=== PATIENT | male | born 1995 | race African-American/Black ===

== ENCOUNTER 2016-09-21 16:31 | Emergency (ER) | payer BC ==
[~2016-09-21] VITALS: Ht 175.3 cm; Wt 75.0 kg
[2016-09-21 16:37] VITALS: BP 120/60; PULSE 70; RESP 15; TEMP 98; O2SAT 100
--- NOTE | 2016-09-21 17:04 | PD ---
HPI . right knee pain Chief Complaint: Injury Time Seen by Provider: 17:01 Travel History International Travel<30 days: No Contact w/Intl Traveler<30days: No Traveled to known affect area: No History of Present Illness HPI 21-year-old male with no past medical history here with complaints of right knee pain. Patient was playing basketball and somehow fell and landed on the right medial aspect of his knee. He says initially he had some difficulty walking and thought he had a fracture so he decided to come to the emergency department. Here while sitting in the bed he realized that he is able to move his joint without any issues. He denies any pain. He has no complaints. He initially felt he just wanted to get up and leave, but decided to wait around for me to see him. History Past Medical Histgory Medical History: Denies Significant Hx Tetanus Vaccination: < 5 Years Past Surgical History Surgical History: No Previous Surgery Social History Alcohol Use: No Tobacco Use: No Allergies-Medications (Allergen,Severity, Reaction): Coded Allergies: No Known Allergies (Unverified , 09/21/16) Reported Meds & Prescriptions Reported Meds & Active Scripts Active No Active Prescriptions or Reported Medications Review of Systems General / Constitutional: No: Fever Eyes: No: Visual changes HENT: No: Headaches Cardiovascular: No: Chest Pain or Discomfort Respiratory: No: Shortness of Breath Gastrointestinal: No: Abdominal Pain Genitourinary: No: Dysuria Musculoskeletal: No: Pain Skin: No Rash Neurologic: No: Weakness Psychiatric: No: Depression Endocrine: No: Polydipsia Hematologic/Lymphatic: No: Easy Bruising Physical Exam Narrative GENERAL: AAO x 3, no acute distress, Well-nourished, well-developed patient. SKIN: Warm and dry. No visible rashes or bruising. HEAD: Normocephalic and atraumatic. EYES: No scleral icterus. No injection or drainage. EOM intact, PERRLA ENT: No nasal drainage noted. Mucous membranes pink. Airway patent. NECK: Supple, trachea midline. No JVD. CARDIOVASCULAR: Regular rate and rhythm without murmurs, gallops, or rubs. RESPIRATORY: Breath sounds equal bilaterally. No accessory muscle use. No rhonchi or rales. GASTROINTESTINAL: Abdomen soft, non-tender, nondistended. EXTREMITIES: No cyanosis or edema. FULL ROM in Right knee/ NO deformity/no edema / no tenderness/ BACK: Nontender without obvious deformity. No CVA tenderness. PSYCH: AAO x 3, normal affect. Data Data Last Documented VS Vital Signs Date Time Temp Pulse Resp B/P Pulse Ox O2 Delivery O2 Flow Rate FiO2 09/21/16 16:51 Room Air 09/21/16 16:37 98.0 70 15 120/60 100 MDM Medical Screen Exam Complete: Yes Emergency Medical Condition: No Differential Diagnosis knee sprain, less likely dislocation, less likely fracture Narrative Course 21-year-old male with no past medical history here with complaints of right knee pain. Patient was playing basketball and somehow fell and landed on the right medial aspect of his knee. He says initially he had some difficulty walking and thought he had a fracture so he decided to come to the emergency department. Here while sitting in the bed he realized that he is able to move his joint without any issues. He denies any pain. He has no complaints. He initially felt he just wanted to get up and leave, but decided to wait around for me to see him. A medical screening exam was performed: At the time of evaluation the presenting medical condition was determined not to be of an emergent nature. The patient was given the option of receiving additional care, but declined. Patient was given options for additional community resources from which to obtain care. The Patient Has Been advised to seek medical attention for their presenting complaint. The patient has been advised to return to the ER at any time if an emergent condition develops. Primary Impression: Encounter for medical screening examination Scripts No Active Prescriptions or Reported Meds Condition: Stable Yanely Harrison Sep 21, 2016 17:04
== END 2016-09-21 17:21 | disposition left against medical advice (07) ==
LOC: NEPB 16:31
DX: M25.561 Pain in right knee (principal)
CPT/HCPCS: 99281; 99283

== ENCOUNTER 2017-03-10 22:03 | Emergency (ER) | payer BC ==
[~2017-03-10] VITALS: Ht 167.6 cm; Wt 72.5 kg
[2017-03-10 22:05] VITALS: BP 124/66; PULSE 67; RESP 16; TEMP 99.8; O2SAT 98
== END 2017-03-10 23:10 | disposition left against medical advice (07) ==
LOC: NED 22:03
DX: J02.9 Acute pharyngitis, unspecified (principal); Z53.21 Procedure and treatment not carried out due to patient leaving prior to being seen by health care provider
CPT/HCPCS: 99281

== ENCOUNTER 2017-03-12 16:30 | Emergency (ER) | payer BC ==
[~2017-03-12] VITALS: Ht 167.6 cm; Wt 74.0 kg
[2017-03-12 16:32] VITALS: BP 124/74; PULSE 87; RESP 18; TEMP 98.1; O2SAT 97
--- NOTE | 2017-03-12 17:07 | PD ---
HPI Chief Complaint: Cold / Flu Symptoms Time Seen by Provider: 17:07 Travel History International Travel<30 days: No Contact w/Intl Traveler<30days: No Traveled to known affect area: No History of Present Illness HPI 21-year-old male presents emergency Department with complaint of cough, chest tightness, shortness of breath 1 week. Cough is dry and nonproductive and his main symptom. Denies history of asthma. Reports tobacco use. Reports wheezing. Denies fever, vomiting. Denies ear pain. Reports throat irritation but denies sore throat. Says his chest hurts when he coughs and takes deep breaths, otherwise denies chest pain. Has tried [id number] medications for symptom management. Symptoms are mild in severity. Has no other medical complaints. No known allergies. No other modifying factors or associated signs and symptoms. [facility] Social History Alcohol Use: No Tobacco Use: Yes Substance Use: Yes (MARIJUANA 09/19/16) Allergies-Medications (Allergen,Severity, Reaction): Coded Allergies: No Known Allergies (Unverified , 03/12/17) Reported Meds & Prescriptions Reported Meds & Active Scripts Active Tessalon Perles (Benzonatate) 100 Mg Cap 100 Mg PO TID PRN Proair Hfa 8.5 GM Inh (Albuterol Sulfate) 90 Mcg/Act Aer 2 Puff INH Q4-6H PRN 108 mcg/actuation Deltasone (Prednisone) 20 Mg Tab 40 Mg PO DAILY 4 Days Review of Systems Except as stated in HPI: all other systems reviewed are Neg Physical Exam Narrative GENERAL: Well-nourished, well-developed black male patient, in no acute distress ; afebrile, nontoxic-appearing SKIN: Warm and dry. HEAD: Atraumatic. Normocephalic. EYES: Pupils equal and round. No scleral icterus. No injection or drainage. ENT: Mucosa pink and moist. No erythema or exudates. No uvular edema. No uvular , palatal, or tonsillar deviation. Airway patent. Nares without nasal blood, purulent drainage or septal hematoma. EARS: Bilateral pinnae and external canals appear within normal limits. Bilateral tympanic membranes without erythema, dullness or perforation. NECK: Trachea midline. No lymphadenopathy. CARDIOVASCULAR: Regular rate and rhythm. No murmur appreciated. RESPIRATORY: No accessory muscle use. Lungs with Wheezing throughout to auscultation. Breath sounds equal bilaterally. No retractions or tachypnea. No Audible wheezing noted. GASTROINTESTINAL: Flat. MUSCULOSKELETAL: No obvious deformities. No clubbing. No cyanosis. No edema. NEUROLOGICAL: Awake and alert. Oriented 3. No obvious cranial nerve deficits. Motor grossly within normal limits. Normal speech. Moves all extremities. 5/5 strength to all extremities. PSYCHIATRIC: Appropriate mood and affect; insight and judgment normal. Data Data Last Documented VS Vital Signs Date Time Temp Pulse Resp B/P (MAP) Pulse Ox O2 Delivery O2 Flow Rate FiO2 03/12/17 16:32 98.1 87 18 124/74 (91) 97 Room Air Orders Orders Chest, Pa & Lat (03/12/17 17:06) Prednisone (Deltasone) (03/12/17 17:15) Albuterol Neb (Albuterol Neb) (03/12/17 17:15) MDM Medical Decision Making Medical Screen Exam Complete: Yes Emergency Medical Condition: Yes Medical Record Reviewed: Yes Differential Diagnosis Viral illness, bronchitis, pneumonia, upper respiratory infection Narrative Course 21-year-old male physical examination consistent with acute bronchitis. Patient is afebrile and nontoxic-appearing. Lungs are with diffuse wheezing throughout. Patient is in no acute distress and oxygen is 97% on room air. 1731: Chest x-ray with no acute findings. Patient reports improvement in symptoms after breathing treatment. Denies chest tightness or shortness of breath. Lungs are clear and equal throughout. Pro Air inhaler, Deltasone, Tessalon Perles prescribed for home. Instructed patient to follow up with primary care provider. Patient verbalizes understanding and agreement with treatment plan. Patient is medically cleared and stable for discharge. Discussed reasons to return to the emergency department. Patient agrees with treatment plan. The patients vital signs are stable and the patient is stable for outpatient follow-up and treatment. Patient discharged home, stable and in no acute distress. Diagnosis Primary Impression: Acute bronchitis Qualified Codes: J20.9 - Acute bronchitis, unspecified Referrals: [facility] Primary Care Physician Patient Instructions: Acute Bronchitis (ED), General Instructions Departure Forms: Tests/Procedures, Work Release Enter return to work date: Mar 14, 2017 Additional Instructions: Use Albuterol inhaler as prescribed Take oral steroids as prescribed and complete full course Use Tessalon Perles as prescribed to decrease coughing spasms [id number] decongestants or antihistamines as directed and as needed for symptom management Your cough can last 4-6 weeks Drink plenty of fluids to prevent dehydration Use hot air humidifier to decrease cough exacerbation Turn off ceiling fans and sleep with head of bed elevated Avoid triggers such as second hand smoke, dust, known allergens Follow-up with your primary care provider Return to the emergency department immediately with worsening of symptoms Med/Other Pt SpecificInfo: Prescription(s) given Scripts Benzonatate (Tessalon Perles) 100 Mg Cap 100 MG PO TID Y for COUGH, #10 CAP 0 Refills Prov: Kristin Downey 03/12/17 Albuterol 8.5 GM Inh (Proair Hfa 8.5 GM Inh) 90 Mcg/Act Aer 2 PUFF INH Q4-6H Y for SOB/WHEEZING, #1 INHALER 0 Refills 108 mcg/actuation Prov: Kristin Downey 03/12/17 Prednisone (Deltasone) 20 Mg Tab 40 MG PO DAILY for 4 Days, TAB 0 Refills Prov: Kristin Downey 03/12/17 Disposition: 01 DISCHARGE HOME Condition: Stable Kristin Downey Mar 12, 2017 17:07
[2017-03-12] MEDS ORDERED: RESP: ALBUTEROL 2.5 MG/3 ML NEB (SCH) INH ONE (17:15)
[2017-03-12] MEDS ORDERED: predniSONE 20 MG TAB PO ONE (17:15)
--- NOTE | 2017-03-12 17:25 | RADRPT ---
EXAM DATE/TIME: 03/12/2017 17:15 [facility] COMPARISON: No previous studies available for comparison. INDICATIONS : Wheezing MEDICAL HISTORY : None. SURGICAL HISTORY : None. ENCOUNTER: Initial ACUITY: 4 - 6 days PAIN SCORE: 0/10 LOCATION: chest FINDINGS: PA and lateral views of the chest demonstrate the lungs to be symmetrically aerated without evidence of mass, infiltrate or effusion. The cardiomediastinal contours are unremarkable. Osseous structure s are intact. CONCLUSION: No acute disease. Farrukh Mendez MD on March 12, 2017 at 17:23 Board Certified Radiologist. This report was verified electronically.
[2017-03-12] MEDS ORDERED: PRED-503 PO (17:29)
[2017-03-12] MEDS ORDERED: ALBUAER3 INH (17:29)
[2017-03-12] MEDS ORDERED: BENZ100 PO (17:29)
== END 2017-03-12 17:40 | disposition home or self-care (01) ==
LOC: NEPK 16:30
DX: J20.9 Acute bronchitis, unspecified (principal); Z72.0 Tobacco use
CPT/HCPCS: 71020; 94664; 99284; J7512; J7613